=== PATIENT | female | born 1950 | race Two or more races ===

== ENCOUNTER 2018-04-02 00:19 | Emergency (ER) | payer MEDICARE, OTHER ==
--- NOTE | 2018-04-02 02:04 | ER Document Report ---
ED General - General Chief Complaint: High Blood Pressure Stated Complaint: BLOOD PRESSURE PROBLEM Time Seen by Provider: 04/02/18 01:50 Notes: Patient is a 68-year-old female with a past medical history of hypertension who presents with concerns of blood pressure that is high. Patient took her blood pressure reading at home, found to be in the 170s and 80s which is higher than her usual prompting her to come to the emergency department. She states that she was worried that this blood pressure can cause a significant medical crisis. She denies a history of similar blood pressures in the past. She has been taking all her medications as directed. Nothing improves or worsens the blood pressure per her report since she noticed to be high. She has not contacted her primary doctor regarding today's concerns. She denies any headache, neck pain, chest pain, weakness, numbness or confusion. Past Medical History - General Information source: Patient - Social History Smoking Status: Never Smoker Frequency of alcohol use: None Drug Abuse: None Lives with: Family Family History: Reviewed & Not Pertinent Review of Systems - Review of Systems Notes: Constitutional: Negative for fever. HENT: Negative for sore throat. Eyes: Negative for visual changes. Cardiovascular: Negative for chest pain. Respiratory: Negative for shortness of breath. Gastrointestinal: Negative for abdominal pain, vomiting or diarrhea. Genitourinary: Negative for dysuria. Musculoskeletal: Negative for back pain. Skin: Negative for rash. Neurological: Negative for headaches, weakness or numbness. 10 point ROS negative except as marked above and in HPI. Physical Exam - Vital signs Vitals: Temp Pulse Resp BP Pulse Ox 98.4 F 67 18 184/76 H 98 04/02/18 00:44 04/02/18 00:44 04/02/18 00:44 04/02/18 00:44 04/02/18 00:44 Interpretation: Hypertensive Notes: PHYSICAL EXAMINATION: GENERAL: Well-appearing, well-nourished and in no acute distress. HEAD: Atraumatic, normocephalic. EYES: Pupils equal round and reactive to light, extraocular movements intact, sclera anicteric, conjunctiva are normal. ENT: nares patent, oropharynx clear without exudates. Moist mucous membranes. NECK: Normal range of motion, supple without lymphadenopathy LUNGS: Breath sounds clear to auscultation bilaterally and equal. No wheezes rales or rhonchi. HEART: Regular rate and rhythm without murmurs ABDOMEN: Soft, nontender, normoactive bowel sounds. No guarding, no rebound. No masses appreciated. EXTREMITIES: Normal range of motion, no pitting or edema. No cyanosis. NEUROLOGICAL: No focal neurological deficits. Moves all extremities spontaneously and on command. PSYCH: Normal mood, normal affect. SKIN: Warm, Dry, normal turgor, no rashes or lesions noted. Course - Re-evaluation Re-evalutation: 04/02/18 02:04 Presentation of asymptomatic hypertension. Patient denies any symptoms concerning for SAH, dissection, NV, or encephalopaty. Alert, oriented, and denies any symptoms at time of assessment. Normal neuro exam. Per [facility] policy guidelines, will therefore not obtain any labs or EKG at this time and will not initiate new BP treatment. I have discussed critical importance of follow up with PCP within 1 week and increased risk of devastating stroke, heart attack, respiratory distress, and other life threatening complications if blood pressure is not reduced appropriately. Diet and exercise habits also discussed. Patient will be discharged with return precautions and follow-up recommendations. - Vital Signs Vital signs: Temp Pulse Resp BP Pulse Ox 98.4 F 67 18 162/69 H 98 04/02/18 00:44 04/02/18 00:44 04/02/18 00:44 04/02/18 00:45 04/02/18 00:44 Discharge - Discharge Clinical Impression: Essential hypertension Condition: Good Disposition: HOME, SELF-CARE Additional Instructions: You were seen today for blood pressure that was high. This is a long-term risk factor for multiple medical problems including heart attack and stroke. However, the blood pressure in of itself will not cause you to have an acute stroke or heart attack over the course of just several days or weeks. You need to have a gradual reduction of your blood pressure back to normal levels over the next several months in conjunction with your primary care physician. Return if you develop headache, weakness, numbness, chest pain, pass out, or have any other symptoms that are concerning to you. Referrals: CHANDAN MATTHEWS MD [Primary Care Provider] - Follow up as needed
[2018-04-02 03:18] VITALS: BP 172/81
== END 2018-04-02 03:15 | disposition home or self-care (01) ==
LOC: ER 00:19
DX: I10 Essential (primary) hypertension (principal)
CPT/HCPCS: 99283